=== PATIENT | female | born 1945 ===

== ENCOUNTER 2018-12-05 08:33 | Day surgery (SDC) | payer MEDICARE, BC, OTHER ==
[~2018-12-05 08:33] MED LIST: PROPOFOL 500 MG/50 ML EMU IV ONE
[2018-12-05 10:04] VITALS: RESP 18; TEMP 97.4; O2SAT 98
[2018-12-05 11:18] VITALS: BP 178/70; PULSE 58
== END 2018-12-05 10:30 | disposition home or self-care (01) | DRG 951 ==
LOC: SURG 08:33
PROVIDERS: ATTEND Surgery
DX: Z12.11 Encounter for screening for malignant neoplasm of colon (principal); K57.32 Diverticulitis of large intestine without perforation or abscess without bleeding; E11.9 Type 2 diabetes mellitus without complications
CPT/HCPCS: J2001; J2704